=== PATIENT | male | born 1965 | race Caucasian/White ===

== ENCOUNTER → 2020-09-20 | Outpatient (CLI) | payer OTHER ==
[2016-12-11 09:36] VITALS: BP 139/76
[~2020-09-20] MED LIST: ASPI-630 PO
== END ==
LOC: LAB 12:34
PROVIDERS: ATTEND Nurse Anesthetist, Certified Registered
DX: Z01.812 Encounter for preprocedural laboratory examination (principal); Z20.828 Contact with and (suspected) exposure to other viral communicable diseases; Z86.010 Personal history of colon polyps
CPT/HCPCS: U0003

== ENCOUNTER → 2020-09-26 | Day surgery (SDC) | payer OTHER ==
[~2020-09-26] MED LIST changes: +IV RINGERS SOLUTION,LACTATED 1,000 ML IV SCH; +LIDOCAINE 2% PF 5 ML VIAL. ONE; +MIDAZOLAM HCL PF 2 MG/2 ML VIAL. IV ONE; +ONDANSETRON PF 4 MG/2 ML VIAL. IV PRN; +PROPOFOL 10,000 MCG/ML (20ML) VIAL IV ONE
[2020-09-26 09:40] VITALS: BP 126/76
--- NOTE | 2020-09-28 20:05 | PATHOLOGY ---
[facility] Accession Number: [id number] . 01 Material submitted: . colon - TRANSVERSE COLON POLYP. Modifiers: transverse . 01 Clinical history: . HX OF POLYPS . 02 Diagnosis: Colon biopsies, transverse colon polyp: - Hyperplastic polyp. - Hyperplastic mucosal-associated lymphoid aggregate. (JPM:maryuri; 09/28/2020) QMS 09/28/2020 1331 Local . 02 Comment: There are no adenomatous changes or evidence of malignancy. (JPM:maryuri; 09/28/2020) . 02 Electronically signed: . Lazaro Albert MD, Pathologist NPI- [id number] . 01 Gross description: . The specimen is received in formalin, labeled "Pendergraft, Wei, transverse polyp" and consists of 2 fragments of pink-rivas tissue measuring 0.3 x 0.2 cm and 0.6 x 0.3 cm which are entirely submitted in A1. (SDY; 09/27/2020) SYU/SYU 09/27/2020 1438 Local . 02 Pathologist provided ICD-10: K63.5 . 02 CPT . 141941 Specimen Comment: A courtesy copy of this report has been sent to [phone] Specimen Comment: [id number] Specimen Comment: Report sent to / DR AUSTIN Performed at: 01 [facility] [address], [place] [id number] MD Aris Lugo MD Phone: [phone] Performed at: 02 [facility] [address], [place] [id number] MD Lazaro Albert MD Phone: [phone]
== END | disposition home or self-care (01) ==
LOC: SURG 08:01
PROVIDERS: ATTEND Emergency Medicine
DX: Z12.11 Encounter for screening for malignant neoplasm of colon (principal); K63.5 Polyp of colon; E78.00 Pure hypercholesterolemia, unspecified; Z87.442 Personal history of urinary calculi; Z86.010 Personal history of colon polyps; Z88.8 Allergy status to other drugs, medicaments and biological substances; Z79.82 Long term (current) use of aspirin; Z79.899 Other long term (current) drug therapy
CPT/HCPCS: 45380; 88305; J2001; J2704; J7120

== ENCOUNTER 2021-02-22 09:45 | Emergency (ER) | payer BC, OTHER ==
[~2021-02-22] VITALS: Ht 177.8 cm; Wt 91.0 kg
[~2021-02-22 09:45] MED LIST changes: -IV RINGERS SOLUTION,LACTATED 1,000 ML IV SCH; -LIDOCAINE 2% PF 5 ML VIAL. ONE; -MIDAZOLAM HCL PF 2 MG/2 ML VIAL. IV ONE; -ONDANSETRON PF 4 MG/2 ML VIAL. IV PRN; -PROPOFOL 10,000 MCG/ML (20ML) VIAL IV ONE
--- NOTE | 2021-02-22 10:26 | PHYS DOC ---
Past History Past Medical History: High Cholesterol Past Surgical History: Other Additional Past Surgical Histo: knee, hernia Alcohol Use: Occasionally Drug Use: None General Adult EDM: Chief Complaint: CHEST PAIN HPI: HPI: Patient is a 55-year-old male coming in for chest pain that is worse with taking a deep breath. Patient states the pain is anterior upper midline chest. Does not radiate to the back. Says is worse when taking deep breath or coughing. Has been going on for 1 day. Patient was diagnosed with COVID-19 1 week ago, started showing symptoms 10 days ago. He was exposed to a coworker tested positive. Patient states he has had intermittent fevers, last fever 3 days ago. Denies any loss of taste or smell, denies any GI complaints, myalgias, or arthralgias. Patient denies any calf pain or lower extremity edema. Patient states he has a past medical history of dyslipidemia but is not taking any medications. States he had a normal stress test a few weeks ago. Denies tobacco or drugs, has infrequent alcohol use. Review of Systems: Review of Systems: All other systems within normal limits except for as noted in the HPI Allergies: Allergies: Allergies Coded Allergies Type Severity Reaction Last Updated Verified pseudoephedrine Allergy Unknown 09/26/20 Yes Physical Exam: PE: Constitutional: Well developed, well nourished, no acute distress, non-toxic appearance. [] HENT: Normocephalic, atraumatic, bilateral external ears normal, nose normal. [] Eyes: PERRLA, conjunctiva normal, no discharge. [] Neck: No rigidity, supple, no stridor. [] Cardiovascular: Regular rate and rhythm, brisk cap refill [] Lungs & Thorax: Non labored symmetric respirations, no tachypnea or respiratory distress [] Abdomen: Soft, nondistended. Skin: Warm, dry, no erythema, no rash. [] Back: Unremarkable Extremities: No deformities, range of motion grossly intact, no lower extremity edema [] Neurologic: Alert and oriented X 3, no focal deficits noted. [] Psychologic: Affect normal, judgement normal, mood normal. [] Current Patient Data: Vital Signs: Vital Signs Date Time Temp Pulse Resp B/P (MAP) Pulse Ox O2 Delivery O2 Flow Rate FiO2 02/22/21 09:50 98.7 94 18 107/78 (88) 95 Room Air EKG: EKG: Sinus rhythm, heart rate 91 bpm, normal axis, no ST elevation or depression, no ectopy, normal intervals. [] Radiology/Procedures: Radiology/Procedures: CTA CHEST Indication: Reason: dyspnea, chest pain- COVID POSITIVE - ORDERED CONTRAST - NOT DIAB / Spl. Instructions: / History: TECHNIQUE: CT angiogram of the chest was performed following the administration of nonionic intravenous contrast for evaluation of pulmonary embolus. 3D MIPs were created and reviewed on an independent workstation to assist in diagnosis and clinical management. One or more of the following dose reduction techniques were utilized: *Automated exposure control (AEC) *Adjustment of mA and/or kV according to patient size *Use of iterative reconstruction technique *CT scan done according to ALARA, or ALARA/IMAGE GENTLY FINDINGS: There is suboptimal opacification of the pulmonary arteries due to bolus timing. This limits evaluation for pulmonary embolic disease, particularly in the segmental and subsegmental pulmonary arteries. No definite central intravascular filling defects are appreciated. There is no definite evidence for central pulmonary embolus. The aorta is normal in caliber without evidence for dissection. Aortic calcifications are present. The heart is normal in size without pericardial effusion. The visualized thyroid gland is within normal limits. No lymphadenopathy is seen. There are patchy infiltrates in the lungs bilaterally, most prominent in the lower lobes, suspicious for multifocal pneumonia. Mild dependent atelectasis is seen bilaterally. No pleural effusion or pneumothorax. The central airways are patent. Images of the upper abdomen demonstrate no focal abnormality. Degenerative changes are seen in the spine. IMPRESSION: Suboptimal opacification of the pulmonary arteries due to bolus timing. This limits evaluation for pulmonary embolic disease, particularly in the segmental and subsegmental pulmonary arteries. No definite evidence for central pulmonary embolus. [] Heart Score: C/O Chest Pain: Yes HEART Score for Chest Pain: HEART Score for Chest Pain Response (Comments) Value History Moderately Suspicious 1 ECG Normal 0 Age >45 - < 65 1 Risk Factors 1 or 2 Risk Factors 1 Total 3 Risk Factors: Risk Factors: DM, Current or recent (<one month) smoker, HTN, HLP, family history of CAD, obesity. Risk Scores: Score 0 - 3: 2.5% MACE over next 6 weeks - Discharge Home Score 4 - 6: 20.3% MACE over next 6 weeks - Admit for Clinical Observation Score 7 - 10: 72.7% MACE over next 6 weeks - Early Invasive Strategies Course & Med Decision Making: Course & Med Decision Making Pertinent Labs and Imaging studies reviewed. (See chart for details) [] Stu Disclaimer: Stu Disclaimer: This electronic medical record was generated, in whole or in part, using a voice recognition dictation system. Departure Departure: Impression: Primary Impression: COVID-19 Disposition: HOME / SELF CARE / HOMELESS Condition: STABLE Referrals: MERLE AUSTIN MD (PCP) Patient Instructions: Albuterol inhalation aerosol Additional Instructions: Get a pulse oximeter and check her pulse regularly at home. Continue to quarantine until symptoms resolve. Return to emergency department or call your primary care provider if oxygen saturation is less than 88 to 89%. Scripts Prednisone (PREDNISONE) 50 Mg Tablet 1 TAB PO DAILY for steroid for 5 Days, #5 TAB You received this medication in the emergency room today. You will starting your next dose tomorrow. Prov: ALLAN CERNA MD 02/22/21 Albuterol Sulfate (PROAIR HFA INHALER) 8.5 Gm Hfa.aer.ad 2 PUFF INH PRN Q6HRS PRN for SHORTNESS OF BREATH for 5 Days, #1 INHALER 0 Refills Prov: ALLAN CERNA MD 02/22/21 ALLAN CERNA MD Feb 22, 2021 10:26
[2021-02-22] MEDS ORDERED: CONTRAST GIVEN. MC PRN (10:30)
[2021-02-22] MEDS ORDERED: IOHEXOL 350 MG/ML 100 ML VIAL. IV ONE (10:30)
--- NOTE | 2021-02-22 10:32 | EKG ---
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
[2021-02-22 10:40] LABS: BASO % 1 % (0-3); EOS % 0 % (0-3); HEMOGLOBIN 14.7 g/dL (13.0-17.5); LYMPH # 0.6 x10^3/uL (1.0-4.8); LYMPH % 19 % (24-48); MEAN CORPUSCULAR HEMOGLOBIN 33 pg (25-35); MEAN CORPUSCULAR HGB CONC 34 g/dL (31-37); MEAN CORPUSCULAR VOLUME 97 fL (79-100); MONO # 0.3 x10^3/uL (0.0-1.1); MONO % 9 % (0-9); NEUT # 2.2 x10^3uL (1.8-7.7); NEUT % 72 % (31-73); PLATELET COUNT 182 x10^3/uL (140-400); RED BLOOD COUNT 4.44 x10^6/uL (4.30-5.70); RED CELL DISTRIBUTION WIDTH 13.2 % (11.5-14.5)
[2021-02-22 10:53] LABS: CALCIUM 8.4 mg/dL (8.5-10.1); CREATININE 1.1 mg/dL (0.7-1.3); POTASSIUM 3.7 mmol/L (3.5-5.1)
[2021-02-22 11:05] LABS: ALBUMIN 3.6 g/dL (3.4-5.0); ALBUMIN/GLOBULIN RATIO 1.1 (1.0-1.7); TOTAL BILIRUBIN 0.3 mg/dL (0.2-1.0); TOTAL PROTEIN 6.8 g/dL (6.4-8.2)
--- NOTE | 2021-02-22 11:13 | RAD ---
Exam Date: 02/22/2021 10:26 AM CTA CHEST Indication: Reason: dyspnea, chest pain- COVID POSITIVE - ORDERED CONTRAST - NOT DIAB / Spl. Instruct ions: / History: TECHNIQUE: CT angiogram of the chest was performed following the administration of nonionic intrave nous contrast for evaluation of pulmonary embolus. 3D MIPs were created and reviewed on an [employer] workstation to assist in diagnosis and clinical management. One or more of the following dose red uction techniques were utilized: *Automated exposure control (AEC) *Adjustment of mA and/or kV according to patient size *Use of iterative reconstruction technique *CT scan done according to ALARA, or ALARA/IMAGE GENTLY FINDINGS: There is suboptimal opacification of the pulmonary arteries due to bolus timing. This limits evaluati on for pulmonary embolic disease, particularly in the segmental and subsegmental pulmonary arteries. No definite central intravascular filling defects are appreciated. There is no definite evidence for central pulmonary embolus. The aorta is normal in caliber without evidence for dissection. Aortic calcifications are present. The heart is normal in size without pericardial effusion. The visualized thyroid gland is within normal limits. No lymphadenopathy is seen. There are patchy infiltrates in the lungs bilaterally, most prominent in the lower lobes, suspicious for multifocal pneumonia. Mild dependent atelectasis is seen bilaterally. No pleural effusion or pneu mothorax. The central airways are patent. Images of the upper abdomen demonstrate no focal abnormality. Degenerative changes are seen in the s pine. IMPRESSION: Suboptimal opacification of the pulmonary arteries due to bolus timing. This limits evaluation for pu lmonary embolic disease, particularly in the segmental and subsegmental pulmonary arteries. No definite evidence for central pulmonary embolus. Patchy infiltrates in the lungs bilaterally suspicious for multifocal pneumonia. Electronically signed by: Danyel Avila MD (02/22/2021 11:11 AM) [id number]
[2021-02-22] MEDS ORDERED: ALBU2.5V8 INH (12:52)
[2021-02-22] MEDS ORDERED: PRED50TA PO (12:52)
[2021-02-22 12:55] VITALS: BP 122/68
== END 2021-02-22 13:00 | disposition home or self-care (01) ==
LOC: ER 09:45
DX: U07.1 COVID-19 (principal); E78.00 Pure hypercholesterolemia, unspecified; Z88.8 Allergy status to other drugs, medicaments and biological substances
CPT/HCPCS: 36415; 71275; 80053; 82803; 83605; 83735; 83880; 84484; 85025; 85379; 85610; 87040; 93005; 99285; Q9967